=== PATIENT | male | born 1975 | race Caucasian/White ===

== ENCOUNTER → 2016-10-20 | Outpatient (CLI) | payer BC ==
[~2016-10-20] MED LIST: AZITTAB PO; IBUP-103 PO
[2016-10-20 12:35] LABS: BASO % 0.1 %; BASO ABS # 0.01 K/uL (0-0.2); COMPLETE YES; EOS % 0.5 %; HEMATOCRIT 43.9 % (42-52); IG% 0.1 %; LYMPH % 23.5 %; LYMPH ABS # 1.87 K/uL (1.2-3.4); MEAN CELL VOLUME 84.4 fL (80-100); MEAN CORPUSCULAR HGB CONC 34.4 g/dl (32-36); MONO % 5.9 %; NEUT % 69.9 %; PLATELET COUNT 226 K/uL (130-400); WHITE BLOOD COUNT 7.96 K/uL (4.8-10.8)
[2016-10-20 13:08] LABS: CALCIUM 9.5 mg/dl (8.5-10.1)
[2016-10-20 13:14] LABS: ALB/GLOB RATIO 1.3 (0.9-2); ALKALINE PHOSPHATASE 66 U/L (45-117); ALT/SGPT 47 U/L (12-78); AST/SGOT 19 U/L (15-37); BLOOD UREA NITROGEN 14 mg/dl (7-18); BUN/CREATININE RATIO 14.7 (10-20); CARBON DIOXIDE 28 mmol/L (21-32); CHLORIDE 108 mmol/L (98-107); CREATININE 0.93 mg/dl (0.60-1.40); GLUCOSE 80 mg/dl (70-99); POTASSIUM 4.4 mmol/L (3.5-5.1); SODIUM 143 mmol/L (136-145)
== END | disposition home or self-care (01) ==
LOC: C.LABBFT 10:05
PROVIDERS: ATTEND Physician Assistant Medical
DX: R61 Generalized hyperhidrosis (principal)

== ENCOUNTER → 2016-12-15 | Outpatient (CLI) | payer BC ==
[2016-12-15 15:09] LABS: THYROID STIMULATING HORMONE 2.29 uIu/ml (0.300-4.500)
[2016-12-17 14:52] LABS: MICROSOMAL AB <1 IU/ML (<9)
== END | disposition home or self-care (01) ==
LOC: C.LAB1850 13:42
PROVIDERS: ATTEND Internal Medicine Endocrinology, Diabetes & Metabolism
DX: R61 Generalized hyperhidrosis (principal)

== ENCOUNTER 2021-04-26 20:18 | Inpatient (IN) ==
--- NOTE | 2021-04-26 20:46 | Emergency Department Note ---
History of Present Illness General Chief complaint: Abdominal Pain Stated complaint: KIDNEY STONE Time Seen by Provider: 04/26/21 20:34 History of Present Illness Maximum Pain Intensity: 7 This is an otherwise healthy 46-year-old male that presents to the emergency department via private vehicle with complaints of "right upper quadrant abdominal pain". The patient states that Tuesday around noon time he began with severe right upper quadrant abdominal pain. He states that this was shortly after landing in [facility]. He had chills and diaphoresis with this. He presented then to the emergency department there in [facility] and had a work-up. He states that there were gallstones noted. He then had some resolution of his pain and proceeded back home here to the area. He notes persistence of pain since that time. Current pain 12/04. Patient denies any chest pain but does note some minor shortness of breath secondary to the pain. In regard to today's visit the patient denies any pertinent past medical history, surgeries or allergies. Patient did feel nauseous earlier but not at the present time. Home Medications Medication Instructions Recorded Confirmed Type No Known Home Medications 07/25/20 09/16/20 History Allergies Allergy/AdvReac Type Severity Reaction Status Date / Time No Known Allergies Allergy Mild Unverified 09/16/20 13:56 Past Med/Surg History Medical History Counseling for initiation of control method OR scheduled-Vasectomy end of this month Plantar fascial fibromatosis of both feet Pneumonia appx 2016 Surgical History History of repair of ACL 1998 Family History Mother Osteoarthritis Excessive sweating Father Dupuytrens contracture Daughter No problems noted. Son No problems noted. Other No significant family history Social History Smoking Status: Never smoker Hx Alcohol Use: No Preferred Language: Ghanaian Visual Impairment: No Limitations Hearing Ability: Normal Beliefs That Will Affect Care: None marital status: Feels Safe at Home: Yes Review of Systems A total of 10 systems reviewed and were otherwise negative Physical Exam Vital Signs Vital Signs - 24 hr 04/26/21 20:22 04/26/21 21:31 Temperature 36.8 C Temperature Source Temporal Artery Scan Pulse Rate 76 68 Pulse Rhythm Regular Respiratory Rate 20 16 Respiratory Effort / Characteristics Non-Labored Spontaneous Non-Labored Spontaneous Respiratory Depth Normal Normal Respiratory Pattern Regular Regular Blood Pressure 132/78 Blood Pressure [Right Arm] 136/83 Blood Pressure Mean 96 Blood Pressure Mean [Right Arm] 100 Blood Pressure Position Sitting Blood Pressure Position [Right Arm] Semi-fowlers Pulse Oximetry 96 97 Oxygen Delivery Method Room Air Room Air Sepsis Recent Fever Within 48 Hours Yes Sepsis New/Unexplained Change in Mental Status No Sepsis Action Taken by Nursing No Action Required VITAL SIGNS - Vital signs and nursing notes were reviewed. Stable and afebrile. GENERAL - 46-year-old male appearing his stated age who is in no acute distress. Communicates well with provider and answers questions appropriately. HEAD - NC/AT. LUNGS - Chest wall symmetric without accessory muscle use, intercostals retractions, or central cyanosis. Normal vesicular breath sounds CTA B/L. No wheezes, rales, or rhonchi appreciated. CARDIAC - RRR with S1/S2. No murmur, rubs, or gallops appreciated. ABDOMEN - Abdominal contour normal without pulsations or visible masses. BS normoactive all four quadrants. RUQ abd TTP noted. No guarding or rigidity. No palpable masses, hepatosplenomegaly, or ascites noted. EXTREMITIES - No clubbing or peripheral cyanosis. No pretibial edema present. +5/5 strength noted in UE/LE bilaterally. NEUROLOGIC - Cranial nerves II through XII grossly intact. Sensory intact to light touch throughout. PSYCH - A&O, and cooperates fully with examiner. Pt is very pleasant and interacts well with examiner. Course Administered Medications Discontinued Medications Piperacillin Sod/Tazobactam Sod (Zosyn) 4.5 gm in 120 mls @ 240 mls/hr IV NOW ONE Stop: 04/26/21 23:41 Last Admin: 04/26/21 23:32 Dose: 240 mls/hr Documented by: [id number] Medical Decision Making Laboratory Data Result diagrams: 04/26/21 21:14 04/26/21 21:14 Lab Results 04/26/21 04/26/21 04/26/21 Range/Units 21:14 21:14 21:15 WBC 8.68 (4.8-10.8) K/uL RBC 4.82 (4.7-6.1) M/uL Hgb 13.9 L (14.0-18.0) g/dL Hct 41.2 L (42-52) % MCV 85.5 (80-100) fL MCH 28.8 (25-34) pg MCHC 33.7 (32-36) g/dL RDW Std Deviation 38.6 (36.4-46.3) fL RDW Coeff of Lenny 12.3 (11.5-14.5) % Plt Count 172 (130-400) K/uL MPV 10.3 (7.4-10.4) fL Immature Gran % (Auto) 0.1 % Neut % (Auto) 74.0 % Lymph % (Auto) 17.5 % [place] % (Auto) 7.5 % Eos % (Auto) 0.8 % Baso % (Auto) 0.1 % Neut # (Auto) 6.42 (1.4-6.5) K/uL Lymph # (Auto) 1.52 (1.2-3.4) K/uL [place] # (Auto) 0.65 H (0.11-0.59) K/uL Eos # (Auto) 0.07 (0-0.5) K/uL Baso # (Auto) 0.01 (0-0.2) K/uL Immature Gran # (Auto) 0.01 (0.00-0.02) K/uL Sodium 142 (136-145) mmol/L Potassium 3.8 (3.5-5.1) mmol/L Chloride 108 H (98-107) mmol/L Carbon Dioxide 27 (21-32) mmol/L Anion Gap 7.0 (3-11) BUN 12 (7-18) mg/dl Creatinine 1.00 (0.6-1.4) mg/dl Est Cr Clr Drug Dosing 118.0 ml/min Est GFR ( Amer) 104.9 ml/min Est GFR (Non-Af Amer) 90.5 ml/min BUN/Creatinine Ratio 11.6 (10-20) Glucose 102 H (70-99) mg/dl Calcium 9.0 (8.5-10.1) mg/dl Total Bilirubin 1.0 (0.2-1) mg/dl AST 63 H (15-37) U/L ALT 124 H (12-78) U/L Alkaline Phosphatase 66 (45-117) U/L Troponin I < 0.015 (0-0.045) ng/ml Total Protein 6.6 (6.4-8.2) gm/dl Albumin 3.5 (3.4-5.0) gm/dl Globulin 3.1 (2.5-4.0) gm/dl Albumin/Globulin Ratio 1.1 (0.9-2) Lipase 195 (73-393) U/L Urine Color Yellow Urine Appearance Clear (Clear) Urine pH 8.0 H (4.5-7.5) Ur Specific [place] 1.005 (1.000-1.030) Urine Protein Negative (Negative) Urine Glucose (UA) Negative (Negative) Urine Ketones Negative (Negative) Urine Blood Negative (Negative) Urine Nitrite Negative (Negative) Urine Bilirubin Negative (Negative) Urine Urobilinogen Negative (Negative) Ur Leukocyte Esterase Negative (Negative) Imaging Data Radiologist's Impression: US GALLBLADDER: Impression: Multiple gallstones are seen. Gallbladder wall thickness measures 6 mm. Negative ultrasound Teixeira sign. CBD is not dilated. Unremarkable pancreas No focal lesion seen in the liver Radiologist: Tommie Voss MD Study ready at 22:27 and initial results transmitted at 22:47 MDM Narrative Patient was seen and evaluated as above in room B12. Review was performed of nursing notes and vital signs. I did review pertinent previous visits and patient history. After obtaining a thorough history and physical examination the above work up was performed. Patient presents to us today with right upper quadrant abdominal pain. He is nontoxic on examination. Vital signs are stable. He does have some right upper quadrant abdominal tenderness. No guarding or rigidity. Options of care were discussed with the patient. IV access was established. Labs were drawn. No leukocytosis. Mild anemia noted with hemoglobin of 13.9. No emergent metabolic disturbance. Mild elevation of AST and ALT. T bili top normal at 1.0. Troponin negative. Lipase normal. Urinalysis does not suggest infection. EKG was performed and reveals normal sinus rhythm at a rate of [address] elevation. Presentation discussed with the on-call general surgeon, Dr. Lerma. We will keep the patient n.p.o. after midnight. We will add Zosyn. Patient will be admitted to medicine service. He is stable at this time. Patient educated upon plan of care. Patient happy with plan of care. Case discussed with the hospitalist. Please refer to further documentation regarding his stay. GCS: 15 In the evaluation and treatment of this patient, the following differential diagnoses were considered: ASC, AK, Pneumonia, GERD, Cholecystitis, Ascending Cholangitis, Cholydocholithiasis, Bowel Obstruction, PE, Amongst Others. Impression & Plan Abdominal pain, acute, right upper quadrant, Gallstones, Thickening of wall of gallbladder, Elevated LFTs Discharge Plan Visit Data Chief Complaint: Abdominal Pain Stated Complaint: KIDNEY STONE ED Provider: Elyssa Bradley ED Midlevel Provider: Leighton Whitten Discharge Problem: Abdominal pain, acute, right upper quadrant, Gallstones, Thickening of wall of gallbladder, Elevated LFTs Patient Disposition: Admitted As Inpatient Condition: Good Forms Stand Alone Forms: [employer] Prescriptions Prescriptions: No Action No Known Home Medications RF: 0 Referrals Referrals: Yrn Hong MD [Primary Care Provider] -
[2021-04-26 21:36] LABS: Basophils # (auto) 0.01 K/uL (0-0.2); Basophils % (auto) 0.1 %; Eosinophils # (auto) 0.07 K/uL (0-0.5); Eosinophils % (auto) 0.8 %; Hematocrit (blood only) 41.2 % (42-52); Hemoglobin 13.9 g/dL (14.0-18.0); Immature Granulocytes # (auto) 0.01 K/uL (0.00-0.02); Immature Granulocytes % (auto) 0.1 %; Lymphocytes # (auto) 1.52 K/uL (1.2-3.4); Lymphocytes % (auto) 17.5 %; Mean Corpuscular Hemoglobin 28.8 pg (25-34); Mean Corpuscular Hgb Conc 33.7 g/dL (32-36); Mean Corpuscular Volume 85.5 fL (80-100); Mean Platelet Volume 10.3 fL (7.4-10.4); Monocytes # (auto) 0.65 K/uL (0.11-0.59); Monocytes % (auto) 7.5 %; Neutrophils # (auto) 6.42 K/uL (1.4-6.5); Platelet Count 172 K/uL (130-400); RDW Coefficient of Variation 12.3 % (11.5-14.5); RDW Standard Deviation 38.6 fL (36.4-46.3); Red Blood Count 4.82 M/uL (4.7-6.1); White Blood Count 8.68 K/uL (4.8-10.8)
[2021-04-26 21:56] LABS: Alanine Aminotransferase 124 U/L (12-78); Albumin Level 3.5 gm/dl (3.4-5.0); Aspartate Aminotransferase 63 U/L (15-37); BUN Creatinine Ratio 11.6 (10-20); Blood Urea Nitrogen 12 mg/dl (7-18); Carbon Dioxide 27 mmol/L (21-32); Chloride 108 mmol/L (98-107); Est GFR (African American) 104.9 ml/min; Est GFR (Non-African American) 90.5 ml/min; Glucose 102 mg/dl (70-99); Lipase 195 U/L (73-393); Potassium 3.8 mmol/L (3.5-5.1); Sodium 142 mmol/L (136-145)
[2021-04-26 22:00] LABS: Albumin Globulin Ratio 1.1 (0.9-2); Alkaline Phosphatase 66 U/L (45-117); Globulin 3.1 gm/dl (2.5-4.0); Total Protein 6.6 gm/dl (6.4-8.2); Troponin I < 0.015 ng/ml (0-0.045)
[2021-04-26 22:27] LABS: Appearance Urine Clear (Clear); Bilirubin Urine Negative (Negative); Blood Urine Negative (Negative); Color Urine Yellow; Glucose Urine UA Negative (Negative); Ketones Urine Negative (Negative); Leukocyte Esterase Urine Negative (Negative); Nitrite Urine Negative (Negative); Protein Urine Negative (Negative); Specific Gravity Urine 1.005 (1.000-1.030); Urobilinogen Urine Negative (Negative)
[2021-04-26] MEDS ORDERED: PIPERACILL/TAZOBAC CONSULT ACTIVE PRN (23:12)
[2021-04-26] MEDS ORDERED: PIPERACILLIN/TAZOBACTAM 4.5 GM/120 ML BAG IV ONE (23:12)
[2021-04-26] MEDS ORDERED: SODIUM CHLORIDE 0.9% 1000ML 1,000 ML IV SCH (23:15)
[2021-04-26] MEDS ORDERED: KETOROLAC TROMETHAMINE 15 MG/ML VIAL IV ONE (23:52)
--- NOTE | 2021-04-26 23:52 | History & Physical Report ---
Date of Service April 26, 2021 Assessment & Plan (1) Abdominal pain, acute, right upper quadrant: Plan: Right upper quadrant abdominal pain/gallstones/thickened gallbladder wall/elevated LFTs- Studies and examination most consistent with acute cholecystitis Ordering CT scan of abdomen and pelvis for further clarification to assess for possible peritonitis NPO NSS + KCl 20 mEq at 100 mils per hour Famotidine 20 mg IV every 12 hours Zofran 4 mg IV every 6 hours as needed Zosyn 4.5 g IV every 8 hours Toradol 15 mg IV every 6 hours as needed moderate pain Morphine sulfate 4 mg IV every 3 hours as needed severe pain Repeat CBC with differential and chemistry profile in a.m. General surgery consulted by the ED and aware (2) Gallstones: Plan: See above (3) Thickening of wall of gallbladder: Plan: See above (4) Elevated LFTs: Plan: See above History of Present Illness Chief Complaint: The patient presents to the emergency department with complaint of right upper quadrant abdominal pain worsening over the past 24 hours Primary Care Provider: Yrn Hong MD The patient is a 46-year-old male with no significant past medical history, who presents to the emergency department with worsening right upper quadrant abdominal pain for the past 24 hours. He did have some intermittent chills and sweats when he landed his airplane in [facility], where he went to the emergency department and was told that he had gallstones. When his pain resolved, he returned back to [place], and has now had a recurrence of the pain is noted. Upon reflection, he reports that he has had intermittent right flank pain over the past few years, and wonders if he may have had initial problems with his gallbladder at that time. He did have some brief nausea but none at this time. Allergies Allergy/AdvReac Type Severity Reaction Status Date / Time No Known Allergies Allergy Mild Unverified 04/27/21 01:06 Home Medications Medication Instructions Recorded Confirmed Type ascorbic acid (vitamin C) 250 mg 0 mg PO DAILY 04/27/21 04/27/21 History tablet (Vitamin C) omega-3 fatty acids 1,000 mg PO DAILY 04/27/21 04/27/21 History vitamin B complex 1 tab PO DAILY 04/27/21 04/27/21 History Past Med/Surg History Medical History Counseling for initiation of control method OR scheduled-Vasectomy end of this month Plantar fascial fibromatosis of both feet Pneumonia appx 2017 Surgical History History of repair of ACL 1998 Family History Mother Osteoarthritis Excessive sweating Father Dupuytrens contracture Daughter No problems noted. Son No problems noted. Other No significant family history Social History Smoking Status: Never smoker Hx Alcohol Use: No Preferred Language: Sinhala Visual Impairment: No Limitations Hearing Ability: Normal Beliefs That Will Affect Care: None marital status: Feels Safe at Home: Yes Review of Systems Review of Systems: The patient denies chest pain, palpitations, shortness of breath, dyspnea on exertion, cough, lower extremity swelling, sore throat, fevers, chills, sweats, vomiting, diarrhea , constipation, pelvic pain, blood in urine or stool, dysuria, lightheadedness, dizziness, headache, memory loss, loss of consciousness, rash, abnormal bruising or bleeding, imbalance, focal or generalized weakness, numbness or tingling in arms or legs, generalized arthralgias or myalgias, back or neck pain, or night sweats. The review of systems is otherwise negative other than for that already noted above, and at least 10 systems have been reviewed. Physical Exam Physical Exam: The patient is awake, alert and oriented 3, well developed and well nourished, normocephalic and atraumatic, lying in bed and in no acute distress. HEENT--PERRL, EOMI, mucous membranes and oropharynx normal. Neck--supple. No JVD. No bruits. Thyroid normal, trachea midline, no adenopathy. Heart--normal S1 and S2. No murmurs, rubs or gallops. Lungs--clear bilaterally, no respiratory distress, no accessory muscle use. Abdomen--normal bowel sounds and soft. Right upper quadrant tenderness. Nondistended Extremities--no cyanosis or clubbing. No edema. Dermatologic--normal skin turgor, normal color, no abnormal lymph nodes, no rash. Neurologic--cranial nerves II through XII grossly intact. Rheumatologic--normal range of motion. Psychiatric--normal affect. Results & Data Results & Data ([facility]) Vital Signs (Past 12 Hours) Vital Signs Temp Pulse Resp BP BP Pulse Ox 04/26/21 21:31 68 16 136/83 97 04/26/21 20:22 98.2 F 76 20 132/78 96 Laboratory Results Laboratory Results WBC 8.68 K/uL (4.8-10.8) 04/26/21 21:14 RBC 4.82 M/uL (4.7-6.1) 04/26/21 21:14 Hgb 13.9 g/dL (14.0-18.0) L 04/26/21 21:14 Hct 41.2 % (42-52) L 04/26/21 21:14 MCV 85.5 fL (80-100) 04/26/21 21:14 MCH 28.8 pg (25-34) 04/26/21 21:14 MCHC 33.7 g/dL (32-36) 04/26/21 21:14 RDW Std Deviation 38.6 fL (36.4-46.3) 04/26/21 21:14 RDW Coeff of Lenny 12.3 % (11.5-14.5) 04/26/21 21:14 Plt Count 172 K/uL (130-400) 04/26/21 21:14 MPV 10.3 fL (7.4-10.4) 04/26/21 21:14 Immature Gran % (Auto) 0.1 % 04/26/21 21:14 Neut % (Auto) 74.0 % 04/26/21 21:14 Lymph % (Auto) 17.5 % 04/26/21 21:14 [place] % (Auto) 7.5 % 04/26/21 21:14 Eos % (Auto) 0.8 % 04/26/21 21:14 Baso % (Auto) 0.1 % 04/26/21 21:14 Neut # (Auto) 6.42 K/uL (1.4-6.5) 04/26/21 21:14 Lymph # (Auto) 1.52 K/uL (1.2-3.4) 04/26/21 21:14 [place] # (Auto) 0.65 K/uL (0.11-0.59) H 04/26/21 21:14 Eos # (Auto) 0.07 K/uL (0-0.5) 04/26/21 21:14 Baso # (Auto) 0.01 K/uL (0-0.2) 04/26/21 21:14 Immature Gran # (Auto) 0.01 K/uL (0.00-0.02) 04/26/21 21:14 Sodium 142 mmol/L (136-145) 04/26/21 21:14 Potassium 3.8 mmol/L (3.5-5.1) 04/26/21 21:14 Chloride 108 mmol/L (98-107) H 04/26/21 21:14 Carbon Dioxide 27 mmol/L (21-32) 04/26/21 21:14 Anion Gap 7.0 (3-11) 04/26/21 21:14 BUN 12 mg/dl (7-18) 04/26/21 21:14 Creatinine 1.00 mg/dl (0.6-1.4) 04/26/21 21:14 Est Cr Clr Drug Dosing 118.0 ml/min 04/26/21 21:14 Est GFR ( Amer) 104.9 ml/min 04/26/21 21:14 Est GFR (Non-Af Amer) 90.5 ml/min 04/26/21 21:14 BUN/Creatinine Ratio 11.6 (10-20) 04/26/21 21:14 Glucose 102 mg/dl (70-99) H 04/26/21 21:14 Calcium 9.0 mg/dl (8.5-10.1) 04/26/21 21:14 Total Bilirubin 1.0 mg/dl (0.2-1) 04/26/21 21:14 AST 63 U/L (15-37) H 04/26/21 21:14 ALT 124 U/L (12-78) H 04/26/21 21:14 Alkaline Phosphatase 66 U/L (45-117) 04/26/21 21:14 Troponin I < 0.015 ng/ml (0-0.045) 04/26/21 21:14 Total Protein 6.6 gm/dl (6.4-8.2) 04/26/21 21:14 Albumin 3.5 gm/dl (3.4-5.0) 04/26/21 21:14 Globulin 3.1 gm/dl (2.5-4.0) 04/26/21 21:14 Albumin/Globulin Ratio 1.1 (0.9-2) 04/26/21 21:14 Lipase 195 U/L (73-393) 04/26/21 21:14 Urine Color Yellow 04/26/21 21:15 Urine Appearance Clear (Clear) 04/26/21 21:15 Urine pH 8.0 (4.5-7.5) H 04/26/21 21:15 Ur Specific [place] 1.005 (1.000-1.030) 04/26/21 21:15 Urine Protein Negative (Negative) 04/26/21 21:15 Urine Glucose (UA) Negative (Negative) 04/26/21 21:15 Urine Ketones Negative (Negative) 04/26/21 21:15 Urine Blood Negative (Negative) 04/26/21 21:15 Urine Nitrite Negative (Negative) 04/26/21 21:15 Urine Bilirubin Negative (Negative) 04/26/21 21:15 Urine Urobilinogen Negative (Negative) 04/26/21 21:15 Ur Leukocyte Esterase Negative (Negative) 04/26/21 21:15 COVID-19 Eval Order Covid19 at [facility] 04/26/21 23:52 SARS-CoV-2 (PCR) NEGATIVE (Negative) 04/26/21 23:52 Diagnostic Findings [facility] Patient: DERRICK STEPHENS (Male) : 77 Status: ER Date: 04/26/21 22:06 Room #: History: RUQ pain Slices: 46 Priors: Tech: Jalyn Cárdenas @ [phone] Exams: US GALLBLADDER Contrast: Accession Numbers: [id number] Referring Physician: REFERRED SELF Preliminary Findings Only See Final Report For Complete Findings US GALLBLADDER: Impression: Multiple gallstones are seen. Gallbladder wall thickness measures 6 mm. Negative ultrasound Teixeira sign. CBD is not dilated. Unremarkable pancreas No focal lesion seen in the liver Radiologist: Tommie Voss MD Study ready at 22:27 and initial results transmitted at 22:47 *This report constitutes a preliminary interpretation only. Non-acute findings felt to be unrelated to the clinical presentation may not be discussed in this report. The study will be interpreted and a final report will be generated by the local Radiologist the following shift. To reach the [facility] radiology department call [phone]. If a discrepancy is found between the preliminary and final interpretations of this study, please notify us via our Client Portal at [email or web address], under QA Exams. You can also fax this report with a description of the discrepancy, or include the final report, to our daytime fax number [phone]. If faxing, please indicate the severity of discrepancy using one of the following categories: [ ] 1 - Agree/Informational [ ] 2 - Unlikely to Affect Management [ ] 3 - Possible Eventual Change of Management [ ] 4 - Probable Immediate Change of Management For all other patient related information, please fax us at [phone]. [id number] Code Status & VTE Plan Code Status Full code VTE Prophylaxis Plan VTE Prophylaxis will be ordered: Yes PG Care Time/CCT Total # of Minutes Spent Total Time Spent with Patient: Total time spent is greater than 50% in coordination of care (as documented) at patient's floor/unit and/or counseling patient: Coding Level of Care Code 04783 Initial Inpt Care Lvl 2 Diagnoses Abdominal pain, acute, right upper quadrant R10.11 Gallstones K80.20 Thickening of wall of gallbladder K82.8 Elevated LFTs R79.89
[2021-04-27] MEDS: NSS + 20MEQ KCL 20 MEQ/1,000 ML BAG IV SCH ×2 (00:12→13:47)
[2021-04-27] MEDS ORDERED: PIPERACILL/TAZOBAC CONSULT ACTIVE PRN (01:46)
[2021-04-27] MEDS ORDERED: KETOROLAC TROMETHAMINE 15 MG/ML VIAL IV PRN (01:46)
[2021-04-27] MEDS ORDERED: ONDANSETRON INJ 2 MG/ML 2 ML VIAL IV PRN (01:46)
[2021-04-27] MEDS ORDERED: MoRPHine SULFATE 4 MG/ML 1 ML CARP\\VIAL IV PRN (01:46)
[2021-04-27] MEDS: FAMOTIDINE 20 MG in SYRINGE 3 ML IV SCH ×2 (03:23→21:37)
[2021-04-27] MEDS ORDERED: PIPERACILLIN/TAZOBACTAM 3.375 GM in DEXTROSE 5% 100 ML IV SCH (06:00)
[2021-04-27 06:24] LABS: Basophils # (auto) 0.01 K/uL (0-0.2); Basophils % (auto) 0.2 %; Eosinophils % (auto) 1.6 %; Hematocrit (blood only) 38.2 % (42-52); Hemoglobin 13.1 g/dL (14.0-18.0); Lymphocytes # (auto) 1.47 K/uL (1.2-3.4); Lymphocytes % (auto) 22.8 %; Mean Corpuscular Hemoglobin 29.6 pg (25-34); Mean Corpuscular Hgb Conc 34.3 g/dL (32-36); Mean Corpuscular Volume 86.4 fL (80-100); Monocytes # (auto) 0.47 K/uL (0.11-0.59); Monocytes % (auto) 7.3 %; Neutrophils % (auto) 68.1 %; Platelet Count 149 K/uL (130-400); RDW Coefficient of Variation 12.4 % (11.5-14.5); RDW Standard Deviation 39.3 fL (36.4-46.3); Red Blood Count 4.42 M/uL (4.7-6.1); White Blood Count 6.45 K/uL (4.8-10.8)
[2021-04-27 07:08] LABS: Bilirubin,Total 1.7 mg/dl (0.2-1); Calcium 8.3 mg/dl (8.5-10.1); Est GFR (African American) 97.8 ml/min; Est GFR (Non-African American) 84.3 ml/min; Globulin 2.9 gm/dl (2.5-4.0); Potassium 4.2 mmol/L (3.5-5.1); Total Protein 5.9 gm/dl (6.4-8.2)
--- NOTE | 2021-04-27 07:13 | Surgery Consultation ---
Date of Consultation April 27, 2021 Assessment & Plan (1) Gallstones: (2) Thickening of wall of gallbladder: (3) Acute cholecystitis: 46-year-old gentleman with what appears to be acute cholecystitis. I discussed the risks and benefits of laparoscopic cholecystectomy with him. We discussed the postoperative course and limitations. He is agreeable to proceed. All his questions were answered. He has been placed on IV antibiotics and IV fluids. We will continue these for now. We will take him to the operating room at the earliest convenience. History of Present Illness Reason for Consultation: Acute cholecystitis Requesting Physician: Jordan Sanchez MD Attending Physician: Jordan Sanchez MD History of Present Illness 46-year-old gentleman presents with 2-day history of right upper quadrant pain. He gives a history of prior right-sided back pain on and off. He was eating eggs on Tuesday morning when he developed a very sharp stabbing pain in his right side. 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 He was seen in the emergency room and sent home after pain medicine. He returned home but still continued to have pain. It was worsening, so he came to the emergency department. Ultrasound demonstrates stones and probable acute cholecystitis. He denies nausea or vomiting. He does endorse fevers and chills over the last 2 days. He denies changes in bowel habits. He denies other complaints. Allergies Allergy/AdvReac Type Severity Reaction Status Date / Time No Known Allergies Allergy Mild Unverified 04/27/21 01:06 Home Medications Medication Instructions Recorded Confirmed Type ascorbic acid (vitamin C) 250 mg 0 mg PO DAILY 04/27/21 04/27/21 History tablet (Vitamin C) omega-3 fatty acids 1,000 mg PO DAILY 04/27/21 04/27/21 History vitamin B complex 1 tab PO DAILY 04/27/21 04/27/21 History Patient History Medical History Counseling for initiation of control method OR scheduled-Vasectomy end of this month Plantar fascial fibromatosis of both feet Pneumonia appx 2016 Surgical History History of repair of ACL 1998 Family History Mother Osteoarthritis Excessive sweating Father Dupuytrens contracture Daughter No problems noted. Son No problems noted. Other No significant family history Social History Smoking Status: Never smoker Hx Alcohol Use: Yes Hx Substance Use: No Preferred Language: Guinean Communication Ability: Effective Visual Impairment: No Limitations Hearing Ability: Normal Ax Survey Worker Required: No Beliefs That Will Affect Care: None marital status: Current Living Situation: Spouse Feels Safe at Home: Yes Assistive Devices: None Review of Systems Review of Systems: All systems reviewed & are unremarkable except as noted in HPI & below Physical Exam Constitutional: WD/WN, vitals as above Eyes: PERRL, conjunctivae normal, anicteric sclerae Neck: trachea midline, no thyromegaly Respiratory: normal respiratory effort; no respiratory distress and no labored breathing Cardiovascular: Rate/Rhythm: regular rate and regular rhythm Gastrointestinal (Abdomen): Inspection/Auscultation: abdomen normal to inspection; abdomen not distended and no abdominal surgical incision Percussion/Palpation: + abdomen tender (RUQ tenderness), abdomen soft, + hernia and + ascites (Small reducible umbilical); no guarding and abdomen not rigid Musculoskeletal: Extremities: no cyanosis and no clubbing Skin: no rashes, warm and dry Psychiatric: A+Ox3, euthymic affect Results & Data ([facility]) Vital Signs (Past 12 Hours) Vital Signs Temp Pulse Pulse Resp BP BP BP 04/27/21 01:49 36.9 C 68 16 118/75 04/27/21 01:00 16 124/66 04/26/21 23:53 16 126/76 04/26/21 21:31 68 16 136/83 04/26/21 20:22 36.8 C 76 20 132/78 Pulse Ox 04/27/21 01:49 95 04/27/21 01:00 96 04/26/21 23:53 96 04/26/21 21:31 97 04/26/21 20:22 96 Laboratory Results 04/27/21 04/27/21 04/26/21 Range/Units 06:03 06:03 23:52 WBC 6.45 (4.8-10.8) K/uL RBC 4.42 L (4.7-6.1) M/uL Hgb 13.1 L (14.0-18.0) g/dL Hct 38.2 L (42-52) % MCV 86.4 (80-100) fL MCH 29.6 (25-34) pg MCHC 34.3 (32-36) g/dL RDW Std Deviation 39.3 (36.4-46.3) fL RDW Coeff of Lenny 12.4 (11.5-14.5) % Plt Count 149 (130-400) K/uL MPV 10.0 (7.4-10.4) fL Immature Gran % (Auto) 0.0 % Neut % (Auto) 68.1 % Lymph % (Auto) 22.8 % [place] % (Auto) 7.3 % Eos % (Auto) 1.6 % Baso % (Auto) 0.2 % Neut # (Auto) 4.40 (1.4-6.5) K/uL Lymph # (Auto) 1.47 (1.2-3.4) K/uL [place] # (Auto) 0.47 (0.11-0.59) K/uL Eos # (Auto) 0.10 (0-0.5) K/uL Baso # (Auto) 0.01 (0-0.2) K/uL Immature Gran # (Auto) 0.00 (0.00-0.02) K/uL Sodium 140 (136-145) mmol/L Potassium 4.2 (3.5-5.1) mmol/L Chloride 109 H (98-107) mmol/L Carbon Dioxide 30 (21-32) mmol/L Anion Gap 1.0 L (3-11) BUN 11 (7-18) mg/dl Creatinine 1.06 (0.6-1.4) mg/dl Est Cr Clr Drug Dosing 111.0 ml/min Est GFR ( Amer) 97.8 ml/min Est GFR (Non-Af Amer) 84.3 ml/min BUN/Creatinine Ratio 10.0 (10-20) Glucose 102 H (70-99) mg/dl Calcium 8.3 L (8.5-10.1) mg/dl Total Bilirubin 1.7 H D (0.2-1) mg/dl AST 83 H (15-37) U/L ALT 148 H (12-78) U/L Alkaline Phosphatase 62 (45-117) U/L Troponin I (0-0.045) ng/ml Total Protein 5.9 L (6.4-8.2) gm/dl Albumin 3.0 L (3.4-5.0) gm/dl Globulin 2.9 (2.5-4.0) gm/dl Albumin/Globulin Ratio 1.0 (0.9-2) Lipase 148 (73-393) U/L Urine Color Urine Appearance (Clear) Urine pH (4.5-7.5) Ur Specific [place] (1.000-1.030) Urine Protein (Negative) Urine Glucose (UA) (Negative) Urine Ketones (Negative) Urine Blood (Negative) Urine Nitrite (Negative) Urine Bilirubin (Negative) Urine Urobilinogen (Negative) Ur Leukocyte Esterase (Negative) COVID-19 Eval Order SARS-CoV-2 (PCR) NEGATIVE (Negative) 04/26/21 04/26/21 04/26/21 Range/Units 23:52 21:15 21:14 WBC (4.8-10.8) K/uL RBC (4.7-6.1) M/uL Hgb (14.0-18.0) g/dL Hct (42-52) % MCV (80-100) fL MCH (25-34) pg MCHC (32-36) g/dL RDW Std Deviation (36.4-46.3) fL RDW Coeff of Lenny (11.5-14.5) % Plt Count (130-400) K/uL MPV (7.4-10.4) fL Immature Gran % (Auto) % Neut % (Auto) % Lymph % (Auto) % [place] % (Auto) % Eos % (Auto) % Baso % (Auto) % Neut # (Auto) (1.4-6.5) K/uL Lymph # (Auto) (1.2-3.4) K/uL [place] # (Auto) (0.11-0.59) K/uL Eos # (Auto) (0-0.5) K/uL Baso # (Auto) (0-0.2) K/uL Immature Gran # (Auto) (0.00-0.02) K/uL Sodium 142 (136-145) mmol/L Potassium 3.8 (3.5-5.1) mmol/L Chloride 108 H (98-107) mmol/L Carbon Dioxide 27 (21-32) mmol/L Anion Gap 7.0 (3-11) BUN 12 (7-18) mg/dl Creatinine 1.00 (0.6-1.4) mg/dl Est Cr Clr Drug Dosing 118.0 ml/min Est GFR ( Amer) 104.9 ml/min Est GFR (Non-Af Amer) 90.5 ml/min BUN/Creatinine Ratio 11.6 (10-20) Glucose 102 H (70-99) mg/dl Calcium 9.0 (8.5-10.1) mg/dl Total Bilirubin 1.0 (0.2-1) mg/dl AST 63 H (15-37) U/L ALT 124 H (12-78) U/L Alkaline Phosphatase 66 (45-117) U/L Troponin I < 0.015 (0-0.045) ng/ml Total Protein 6.6 (6.4-8.2) gm/dl Albumin 3.5 (3.4-5.0) gm/dl Globulin 3.1 (2.5-4.0) gm/dl Albumin/Globulin Ratio 1.1 (0.9-2) Lipase 195 (73-393) U/L Urine Color Yellow Urine Appearance Clear (Clear) Urine pH 8.0 H (4.5-7.5) Ur Specific [place] 1.005 (1.000-1.030) Urine Protein Negative (Negative) Urine Glucose (UA) Negative (Negative) Urine Ketones Negative (Negative) Urine Blood Negative (Negative) Urine Nitrite Negative (Negative) Urine Bilirubin Negative (Negative) Urine Urobilinogen Negative (Negative) Ur Leukocyte Esterase Negative (Negative) COVID-19 Eval Order Covid19 at [facility] SARS-CoV-2 (PCR) (Negative) 04/26/21 Range/Units 21:14 WBC 8.68 (4.8-10.8) K/uL RBC 4.82 (4.7-6.1) M/uL Hgb 13.9 L (14.0-18.0) g/dL Hct 41.2 L (42-52) % MCV 85.5 (80-100) fL MCH 28.8 (25-34) pg MCHC 33.7 (32-36) g/dL RDW Std Deviation 38.6 (36.4-46.3) fL RDW Coeff of Lenny 12.3 (11.5-14.5) % Plt Count 172 (130-400) K/uL MPV 10.3 (7.4-10.4) fL Immature Gran % (Auto) 0.1 % Neut % (Auto) 74.0 % Lymph % (Auto) 17.5 % Ro[place] % (Auto) 7.5 % Eos % (Auto) 0.8 % Baso % (Auto) 0.1 % Neut # (Auto) 6.42 (1.4-6.5) K/uL Lymph # (Auto) 1.52 (1.2-3.4) K/uL [place] # (Auto) 0.65 H (0.11-0.59) K/uL Eos # (Auto) 0.07 (0-0.5) K/uL Baso # (Auto) 0.01 (0-0.2) K/uL Immature Gran # (Auto) 0.01 (0.00-0.02) K/uL Sodium (136-145) mmol/L Potassium (3.5-5.1) mmol/L Chloride (98-107) mmol/L Carbon Dioxide (21-32) mmol/L Anion Gap (3-11) BUN (7-18) mg/dl Creatinine (0.6-1.4) mg/dl Est Cr Clr Drug Dosing ml/min Est GFR ( Amer) ml/min Est GFR (Non-Af Amer) ml/min BUN/Creatinine Ratio (10-20) Glucose (70-99) mg/dl Calcium (8.5-10.1) mg/dl Total Bilirubin (0.2-1) mg/dl AST (15-37) U/L ALT (12-78) U/L Alkaline Phosphatase (45-117) U/L Troponin I (0-0.045) ng/ml Total Protein (6.4-8.2) gm/dl Albumin (3.4-5.0) gm/dl Globulin (2.5-4.0) gm/dl Albumin/Globulin Ratio (0.9-2) Lipase (73-393) U/L Urine Color Urine Appearance (Clear) Urine pH (4.5-7.5) Ur Specific [place] (1.000-1.030) Urine Protein (Negative) Urine Glucose (UA) (Negative) Urine Ketones (Negative) Urine Blood (Negative) Urine Nitrite (Negative) Urine Bilirubin (Negative) Urine Urobilinogen (Negative) Ur Leukocyte Esterase (Negative) COVID-19 Eval Order SARS-CoV-2 (PCR) (Negative)
[2021-04-27] MEDS ORDERED: LIDOCAINE/EPINEPHRINE 1% 20 ML VIAL ONE (07:16)
--- NOTE | 2021-04-27 07:25 | Anesthesiology Consultation ---
Date of Service April 27, 2021 Assessment & Plan (1) Encounter for pre-operative examination: Chart Review Chart Review: Acceptable Risk for Surgery History Surgery Operation Date: 04/27/21 11:00 Proposed Procedures p Laparoscopic Cholecystectomy - Jean Marie Lerma MD Height/Weight Height: 6 ft 2 in Weight: 99.6 kg Allergies Allergy/AdvReac Type Severity Reaction Status Date / Time No Known Allergies Allergy Mild Unverified 04/27/21 01:06 Medications Home Medications Medication Instructions Recorded Confirmed Last Taken ascorbic acid (vitamin C) 250 mg 0 mg PO DAILY 04/27/21 04/27/21 Unknown tablet (Vitamin C) omega-3 fatty acids 1,000 mg PO DAILY 04/27/21 04/27/21 Unknown vitamin B complex 1 tab PO DAILY 04/27/21 04/27/21 Unknown Active Medications Generic Name Dose Route Start Last Admin Trade Name Freq PRN Reason Stop Dose Admin Potassium Chloride/Sodium Chloride 20 meq in 1,000 mls @ 100 mls/hr 04/26/21 23:30 04/27/21 00:12 Normal Saline W/20 Meq Kcl IV 05/26/21 23:29 100 mls/hr .Q10H LINDSEY Administration Piperacillin Sod/Tazobactam 115 mls @ 28.75 mls/hr 04/27/21 06:00 04/27/21 05:04 Sod 3.375 gm/ Dextrose IV 05/07/21 05:59 28.8 mls/hr Q8H LINDSEY Administration Protocol Famotidine 20 mg/ Syringe 5 mls @ 2.5 mls/min 04/27/21 03:00 04/27/21 03:23 IV 05/27/21 02:59 2.5 mls/min Q12 LINDSEY Administration NPO Date Last Intake of Fluids: 04/26/21 Time Last Intake of Fluids: 23:59 Date Last Intake of Solids: 04/26/21 Time Last Intake of Solids: 23:59 Past Medical History Medical History (Updated 04/27/21 @ 07:25 by Lei Driver MD) Acute cholecystitis Counseling for initiation of control method OR scheduled-Vasectomy end of this month Plantar fascial fibromatosis of both feet Pneumonia appx 2017 Past Family History Family History Mother Osteoarthritis Excessive sweating Father Dupuytrens contracture Daughter No problems noted. Son No problems noted. Other No significant family history Past Surgical History Surgical History History of repair of ACL 1998 Social History Smoking Status: Never smoker Hx Alcohol Use: Yes alcohol intake frequency: holidays/special occasions only Hx Substance Use: No Physical Exam Vital Signs Last Vital Signs Temp 36.9 C 04/27/21 01:49 Pulse 68 04/27/21 01:49 Resp 16 04/27/21 01:49 BP 118/75 04/27/21 01:49 Pulse Ox 95 04/27/21 01:49 Testing Laboratory Results 04/27/21 06:03 04/27/21 06:03 Urine Color Yellow 04/26/21 21:15 Urine Appearance Clear (Clear) 04/26/21 21:15 Urine pH 8.0 (4.5-7.5) H 04/26/21 21:15 Ur Specific [place] 1.005 (1.000-1.030) 04/26/21 21:15 Urine Protein Negative (Negative) 04/26/21 21:15 Urine Glucose (UA) Negative (Negative) 04/26/21 21:15 Urine Ketones Negative (Negative) 04/26/21 21:15 Urine Nitrite Negative (Negative) 04/26/21 21:15 Ur Leukocyte Esterase Negative (Negative) 04/26/21 21:15
--- NOTE | 2021-04-27 07:57 | CT Scan Report ---
ABDOMEN AND PELVIS CT WITHOUT CONTRAST CT DOSE: 1301.27 mGy.cm HISTORY: Acute right lower quadrant abdominal pain cholecystitis TECHNIQUE: Multiaxial CT images of the abdomen and pelvis were performed without contrast. A dose lo wering technique was utilized adhering to the principles of ALARA. COMPARISON STUDY: Right upper quadrant ultrasound 04/26/2021, MRI lumbar spine 07/10/2014, CT abdomen and pelvis 07/10/2008 FINDINGS: The imaged inferior cardiac chambers are unremarkable. Mild subsegmental linear bibasilar c onsolidative opacities are suggestive of atelectasis/scarring. There is no pneumatosis or pneumoperit oneum. The spleen is enlarged measuring 15 cm in length. Unremarkable pancreas, adrenal glands and li alejandro. The gallbladder is distended and demonstrates wall thickening with pericholecystic fluid and tim ma. Numerous gallstones are noted extending into the gallbladder neck on image 120 series 13 and poss ibly the proximal cystic duct. No intrahepatic or extrahepatic biliary ductal dilation. Mildly promin ent pericaval and periportal lymph nodes measure up to 7 mm which are likely reactive. Unremarkable kidneys. No renal or ureteral calculi or hydronephrosis. Prostate is upper limits of nor mal in size. Partial distention of the urinary bladder. There is suggestion of small fat filled ingui nal hernias. Aorta and IVC are unremarkable. No adenopathy. Surgical clips of the upper scrotum. There is no bowel obstruction or bowel wall thickening. Mild colonic diverticulosis with mild to mode rate fecal retention. Normal appendix. Tiny fat filled periumbilical hernia. Unremarkable soft tissue s. No acute fracture. IMPRESSION: 1. Cholelithiasis with findings compatible with acute cholecystitis. 2. No biliary ductal dilation. 3. No bowel obstruction or bowel wall thickening. Normal appendix. 4. Mild splenomegaly. ACT 112: Negative or not required by law. The above report was generated using voice recognition software. It may contain grammatical, syntax o r spelling errors. Electronically signed by: Sam Raymond M.D. 04/27/2021 7:56 AM
[2021-04-27] MEDS ORDERED: fentaNYL citrate 100 MCG/2 ML VIAL ONE ×2 (08:08→09:30)
[2021-04-27] MEDS ORDERED: MIDAZOLAM HCL 1 MG/ML 2ML VIAL ONE (08:08)
[2021-04-27] MEDS ORDERED: ROCURONIUM BROMIDE 10 MG/ML 5 ML VIAL IV ONE ×2 (08:08→09:30)
[2021-04-27] MEDS ORDERED: LIDOCAINE 2% 2 ML VIAL/AMP(20MG/ML) INFIL ONE (08:08)
[2021-04-27] MEDS ORDERED: DEXAMETHASONE SOD INJ 4 MG/ML VIAL ONE (08:08)
[2021-04-27] MEDS ORDERED: ONDANSETRON INJ 2 MG/ML 2 ML VIAL ONE (08:08)
[2021-04-27] MEDS ORDERED: PROPOFOL IV EMULSION 10 MG/ML 20 ML VIAL IV ONE (08:08)
[2021-04-27] MEDS ORDERED: SUGAMMADEX SODIUM 200 MG/2 ML VIAL IV ONE (08:10)
--- NOTE | 2021-04-27 08:26 | Ultrasound Report ---
ABDOMINAL ULTRASOUND, RIGHT UPPER QUADRANT HISTORY: Right upper quadrant abdominal pain.. COMPARISON: None. FINDINGS: Pancreas: The pancreas demonstrates a normal echotexture. Liver: Unremarkable. Gallbladder: The gallbladder wall is thickened and edematous measuring up to 6 mm. There are multiple gallstones identified. There is no sonographic Teixeira's sign. CBD: 4 mm. Right kidney: No hydronephrosis. IMPRESSION: Thickened and edematous gallbladder wall with multiple gallstones. There is negative sonographic Mur phy sign. However, the images remain concerning for acute cholecystitis. Clinical correlation recomme nded. ACT 112: Negative or not required by law. Electronically signed by: Alexy Silva M.D. 04/27/2021 8:24 AM
[2021-04-27] MEDS ORDERED: ePHEDrine sulfate 50 MG/ML SYR ONE (09:17)
--- NOTE | 2021-04-27 09:59 | Post Operative Brief Note ---
Immediate Post Op Note v1 Date of Surgery April 27, 2021 Pre & Post Diagnosis Operation Date: 04/27/21 11:00 Pre-Op Diagnosis: (1) Gallstones (2) Thickening of wall of gallbladder (3) Acute cholecystitis Post-Op Diagnosis: (1) Gallstones (2) Thickening of wall of gallbladder (3) Acute cholecystitis I identified the patient and participated in the time-out.: Yes Procedure Operation Date: 04/27/21 11:00 Actual Procedures p Laparoscopic Cholecystectomy - Jean Marie Lerma MD Surgeon Jean Marie Lerma MD [employer] LISA Rojas assisted with tissue retraction; camera op; closure Estimated Blood Loss 10 Findings Consistent with Post-Op Diagnosis
--- NOTE | 2021-04-27 10:04 | Operative Report ---
Post Operative Report Pre & Post Diagnosis Operation Date: 04/27/21 11:00 Pre-Op Diagnosis: (1) Gallstones (2) Thickening of wall of gallbladder (3) Acute cholecystitis Post-Op Diagnosis: (1) Gallstones (2) Thickening of wall of gallbladder (3) Acute cholecystitis I identified the patient and participated in the time-out.: Yes Procedure Operation Date: 04/27/21 11:00 Actual Procedures p Laparoscopic Cholecystectomy - Jean Marie Lerma MD Surgeon Jean Marie Lerma MD [employer] LISA Rojas assisted with tissue retraction; camera op; closure Estimated Blood Loss 10 Findings Consistent with Post-Op Diagnosis Severe inflammation and distention of the gallbladder with multiple large gallstones Specimens Gallbladder Anesthesia Type General Complications No immediate complications Indications Acute cholecystitis Description of Procedure The patient was taken to the operating room, and placed supine on the operating table. A timeout was performed, perioperative antibiotics were administered, SCD boots were placed. After adequate anesthesia and analgesia was obtained, the abdomen was prepped and draped in the normal sterile fashion. Local anesthetic was injected into and around the proposed incision sites. An incision was made with a 15 blade scalpel in the infra umbilical region and carried down to the level of the fascia. There is a small umbilical hernia identified. It was dissected free and reduced. The fascia was grasped with a trach hook, and a varies needle was used to enter the abdominal cavity. The abdomen was insufflated to a pressure of 15 mmHg, and a 11 mm trocar was placed in this location. A 10 mm, 30 degree laparoscope was placed into the abdominal cavity, and the abdomen was surveyed. The gallbladder was quite distended and inflamed. There were multiple adhesions of the omentum to the gallbladder. Two 5 mm trochars were placed along the right costal margin, and one 5 mm trocar was placed in the subxiphoid region under direct visualization. The gallbladder was grasped and retracted cephalad and laterally, exposing the triangle of Rik ot. Omental adhesions were taken down with blunt dissection as well as judicious use of the L-hook cautery. Dissection began in the triangle with a combination of blunt dissection with the [place] dissector, and judicious use of the hook cautery. The cystic duct and cystic artery were dissected free circumferentially, and a critical view of safety was obtained. The cystic duct and cystic artery were clipped and transected, and the gallbladder was removed from the gallbladder fossa with the hook cautery. There was severe inflammation in this location. The camera was switched to a 5 mm, t he gallbladder was placed in an Endo Catch bag, and removed via the supraumbilical port site. The camera was switched back to the 10 mm camera, and the abdomen was surveyed again. Hemostasis was checked and attended, and was excellent. The abdomen was copiously irrigated and suctioned free. Again hemostasis was checked and was excellent. All trochars were removed under direct visualization. The abdomen was desufflated. The fascia in the 11 mm port site was closed with a 0 Prolene suture. The skin was closed with a running 4-0 Monocryl subcuticular stitch. Dermabond was applied. The patient tolerated the procedure without complication, and was transferred in stable condition to the PACU. All instrument, needle, and sponge counts were correct at the end of the case. My service center assistant was necessary throughout the procedure for tissue retraction, possible camera operation, and closure of the wounds. I understand that section 1842(b)(7)(D) of the Social Security act generally prohibits Medicare physician fee schedule payment for the services of assistants at surgery in teaching hospitals when qualified residents are available to furnish such services. I certify that the services for which payment is claimed were medically necessary and that no qualified resident was available to perform the services. I further understand that these services are subject to postpayment review by the Medicare carrier. I attest to the content of the Intraoperative Record and any orders documented therein. Any exceptions are noted below.
--- NOTE | 2021-04-27 10:25 | Hospitalist Progress Note ---
Date of Service April 27, 2021 Assessment & Plan (1) Abdominal pain, acute, right upper quadrant: Plan: Right upper quadrant abdominal pain/gallstones/thickened gallbladder wall/elevated LFTs- Studies and examination most consistent with acute cholecystitis CT scan of abdomen and pelvis Cholelithiasis with concern for acute cholecystitis, no ductal dilation Patient status post cholecystectomy still with out having flatus or bowel movement. Famotidine 20 mg IV every 12 hours Zofran 4 mg IV every 6 hours as needed Zosyn 4.5 g IV every 8 hours Toradol 15 mg IV every 6 hours as needed moderate pain Morphine sulfate 4 mg IV every 3 hours as needed severe pain (2) Gallstones: Plan: See above (3) Thickening of wall of gallbladder: Plan: See above (4) Elevated LFTs: Plan: Watch for postoperative irritation Admission and Anticipated Discharge Date Admission Date: April 26, 2021 Subjective Pt was seen post operatively good pain control, no flatus urinating ok too, mild nausea Review of Systems Review of Systems: Mild distress and fatigue no headache, no visual changes no speech or swallowing issues no chest pain, pressure or palpitations no shortness of breath, cough or wheezes Mild abdominal pain, mild nausea without vomiting, no flatus or bowel movement no dysuria, hematuria or frequency no focal joint pain or swelling no back pain, CVA tenderness or radicular pain no bruising, bleeding or rashes no focal signs of weakness or numbness or altered sensation no complaints of anxiety or depression.. Physical Exam Physical Exam: The patient appeared well nourished and normally developed. Vital signs as documented. Head exam is normocephalic atraumatic Neck is without JVD, thyromegaly, or carotid bruits. Lungs are clear to auscultation, no focal loss of breath sounds Cardiac exam, Rhythm is regular.. No murmurs, rubs or gallops. Abdominal exam reveals hypoactive bowel sounds, soft laparoscopic ports are visible with Dermabond in place Extremities are nonedematous and both pedal pulses are present Neurologic exam is alert and oriented, no focal loss of strength or sensation Skin is without bruises or rashes Psychologically is without concerns for anxiety or depression Results & Data Results & Data ([facility]) Vital Signs (Past 12 Hours) Vital Signs Temp Pulse Pulse Resp BP BP Pulse Ox 04/27/21 10:13 97.7 F 77 13 122/69 97 04/27/21 07:46 98.1 F 66 16 136/81 97 04/27/21 07:35 81 16 129/83 98 04/27/21 01:49 98.4 F 68 16 118/75 95 04/27/21 01:00 16 124/66 96 04/26/21 23:53 16 126/76 96 PG Care Time/CCT Total # of Minutes Spent Total Time Spent with Patient: Total time spent is greater than 50% in coordination of care (as documented) at patient's floor/unit and/or counseling patient: Coding Level of Care Code 08188 Subseq Hosp Care Lvl 2 Diagnoses Abdominal pain, acute, right upper quadrant R10.11 Gallstones K80.20 Thickening of wall of gallbladder K82.8 Elevated LFTs R79.89
--- NOTE | 2021-04-27 11:01 | Anesthesiology Progress Note ---
Date of Service April 27, 2021 Anesthesia Post Procedure Vital Signs Vital Signs: Temp Pulse Pulse Pulse Resp BP BP 04/27/21 10:45 36.8 C 72 16 132/67 04/27/21 10:30 36.3 C L 80 18 130/67 04/27/21 10:20 68 19 126/64 04/27/21 10:13 36.5 C 77 13 122/69 04/27/21 07:46 36.7 C 66 16 136/81 04/27/21 07:35 81 16 129/83 04/27/21 01:49 36.9 C 68 16 118/75 04/27/21 01:00 16 04/26/21 23:53 16 04/26/21 21:31 68 16 04/26/21 20:22 36.8 C 76 20 132/78 BP Pulse Ox 04/27/21 10:45 94 04/27/21 10:30 94 04/27/21 10:20 96 04/27/21 10:13 97 04/27/21 07:46 97 04/27/21 07:35 98 04/27/21 01:49 95 04/27/21 01:00 124/66 96 04/26/21 23:53 126/76 96 04/26/21 21:31 136/83 97 04/26/21 20:22 96 Transfer of Care Handoff Completed per policy Notes Mental Status: alert / awake / arousable Patient Amnestic to Procedure: Yes Nausea / Vomiting: adequately controlled Pain: adequately controlled Airway Patency, RR, SpO2: stable & adequate BP & HR: stable & adequate Hydration State: stable & adequate Anesthetic Complications: no major complications apparent
--- NOTE | 2021-04-27 11:09 | Electrocardiogram Report ---
Test Reason : Blood Pressure : / mmHG Vent. Rate : 071 BPM Atrial Rate : 071 BPM P-R Int : 186 ms QRS Dur : 088 ms QT Int : 376 ms P-R-T Axes : 063 -39 021 degrees QTc Int : 408 ms Normal sinus rhythm Left axis deviation possible Inferior infarct , age undetermined Abnormal ECG No previous ECGs available Confirmed by Yrn Tanner ([id number]) on 04/27/2021 11:08:34 AM Referred By: REFERRED SELF Confirmed By:Deon Tanner
[2021-04-27] MEDS ORDERED: FLUARIX QUADRIVALENT 0.5 ML SYR IM ONE (11:35)
[2021-04-27] MEDS ORDERED: ACETAMINOPHEN 325 MG TAB PO PRN (16:17)
[2021-04-27] MEDS ORDERED: IBUPROFEN 600 MG TAB PO PRN (16:17)
[2021-04-27] MEDS: oxyCODONE/ACETAMINOPHEN 5mg/325mg TAB PO PRN (19:05)
[2021-04-27 23:51] VITALS: O2SAT 94
[2021-04-28] MEDS: oxyCODONE/ACETAMINOPHEN 5mg/325mg TAB PO PRN (05:53)
[2021-04-28 07:28] VITALS: BP 121/74; PULSE 69; TEMP 98.2
[2021-04-28 07:35] LABS: Eosinophils # (auto) 0.06 K/uL (0-0.5); Eosinophils % (auto) 0.7 %; Hematocrit (blood only) 37.6 % (42-52); Hemoglobin 13.5 g/dL (14.0-18.0); Immature Granulocytes # (auto) 0.02 K/uL (0.00-0.02); Immature Granulocytes % (auto) 0.2 %; Lymphocytes # (auto) 1.86 K/uL (1.2-3.4); Mean Corpuscular Hemoglobin 30.3 pg (25-34); Mean Corpuscular Hgb Conc 35.9 g/dL (32-36); Mean Corpuscular Volume 84.3 fL (80-100); Mean Platelet Volume 9.6 fL (7.4-10.4); Monocytes # (auto) 0.74 K/uL (0.11-0.59); Monocytes % (auto) 8.3 %; Neutrophils # (auto) 6.19 K/uL (1.4-6.5); Neutrophils % (auto) 69.8 %; Platelet Count 185 K/uL (130-400); RDW Coefficient of Variation 12.5 % (11.5-14.5); RDW Standard Deviation 38.5 fL (36.4-46.3); Red Blood Count 4.46 M/uL (4.7-6.1); White Blood Count 8.87 K/uL (4.8-10.8)
[2021-04-28] MEDS: FAMOTIDINE 20 MG in SYRINGE 3 ML IV SCH (08:10)
[2021-04-28 08:25] LABS: Albumin Level 3.2 gm/dl (3.4-5.0); BUN Creatinine Ratio 9.8 (10-20); Calcium 9.6 mg/dl (8.5-10.1); Est GFR (African American) 107.5 ml/min; Est GFR (Non-African American) 92.7 ml/min; Potassium 3.7 mmol/L (3.5-5.1)
[2021-04-28 08:28] LABS: Albumin Globulin Ratio 0.9 (0.9-2); Globulin 3.5 gm/dl (2.5-4.0); Total Protein 6.7 gm/dl (6.4-8.2)
[2021-04-28 08:32] LABS: Bilirubin,Total 1.3 mg/dl (0.2-1)
--- NOTE | 2021-04-28 11:16 | Surgery Progress Note ---
Date of Service April 28, 2021 Assessment & Plan (1) Gallstones: (2) Acute cholecystitis: Plan: POD # 1 s/p laparoscopic cholecystectomy -avss - postop pain mild and controlled - T. bili 1.3 (1.7 preop) - Improvement of LFTS, ALT slightly elevated, alk phos normal Plan: Doing well from surgical standpoint for discharge discharge instructions reviewed and provided follow-up surgery office in [address] Trujillo was present during my examination and agrees with above. Admission and Anticipated Discharge Date Admission Date: April 26, 2021 Subjective feeling good, ready to go home pain controlled with Percocet and Aleve no nausea passing gas urinating and ambulating Physical Exam Constitutional: WD/WN, vitals as above Respiratory: normal respiratory effort; no respiratory distress and no labored breathing Gastrointestinal (Abdomen): Inspection/Auscultation: abdomen normal to inspection and + abdominal surgical incision (laparoscopy incisions with glue clean/dry/intact) Percussion/Palpation: + abdomen tender (at incision sites) and abdomen soft; no guarding and abdomen not rigid Skin: no rashes, warm and dry Psychiatric: A+Ox3, euthymic affect Results & Data ([facility]) Vital Signs (Past 12 Hours) Vital Signs Temp Pulse Pulse Resp BP Pulse Ox 04/28/21 11:09 36.8 C 70 69 18 121/74 94 04/28/21 07:27 36.8 C 69 18 121/74 94 04/28/21 04:20 37.1 C 65 18 125/72 94 04/27/21 23:50 37.1 C 67 18 121/63 94 Laboratory Results 04/28/21 04/28/21 Range/Units 07:20 07:20 WBC 8.87 (4.8-10.8) K/uL RBC 4.46 L (4.7-6.1) M/uL Hgb 13.5 L (14.0-18.0) g/dL Hct 37.6 L (42-52) % MCV 84.3 (80-100) fL MCH 30.3 (25-34) pg MCHC 35.9 (32-36) g/dL RDW Std Deviation 38.5 (36.4-46.3) fL RDW Coeff of Lenny 12.5 (11.5-14.5) % Plt Count 185 (130-400) K/uL MPV 9.6 (7.4-10.4) fL Immature Gran % (Auto) 0.2 % Neut % (Auto) 69.8 % Lymph % (Auto) 21.0 % [place] % (Auto) 8.3 % Eos % (Auto) 0.7 % Baso % (Auto) 0.0 % Neut # (Auto) 6.19 (1.4-6.5) K/uL Lymph # (Auto) 1.86 (1.2-3.4) K/uL [place] # (Auto) 0.74 H (0.11-0.59) K/uL Eos # (Auto) 0.06 (0-0.5) K/uL Baso # (Auto) 0.00 (0-0.2) K/uL Immature Gran # (Auto) 0.02 (0.00-0.02) K/uL Sodium 139 (136-145) mmol/L Potassium 3.7 (3.5-5.1) mmol/L Chloride 108 H (98-107) mmol/L Carbon Dioxide 24 (21-32) mmol/L Anion Gap 8.0 (3-11) BUN 10 (7-18) mg/dl Creatinine 0.98 (0.6-1.4) mg/dl Est Cr Clr Drug Dosing 120.0 ml/min Est GFR ( Amer) 107.5 ml/min Est GFR (Non-Af Amer) 92.7 ml/min BUN/Creatinine Ratio 9.8 L (10-20) Glucose 106 H (70-99) mg/dl Calcium 9.6 D (8.5-10.1) mg/dl Total Bilirubin 1.3 H (0.2-1) mg/dl AST 59 H (15-37) U/L ALT 175 H (12-78) U/L Alkaline Phosphatase 64 (45-117) U/L Total Protein 6.7 (6.4-8.2) gm/dl Albumin 3.2 L (3.4-5.0) gm/dl Globulin 3.5 (2.5-4.0) gm/dl Albumin/Globulin Ratio 0.9 (0.9-2)
--- NOTE | 2021-04-28 19:49 | Discharge Summary ---
Date of Service April 28, 2021 Admission HPI Per Admitting Provider The patient is a 46-year-old male with no significant past medical history, who presents to the emergency department with worsening right upper quadrant abdominal pain for the past 24 hours. He did have some intermittent chills and sweats when he landed his airplane in [facility], where he went to the emergency department and was told that he had gallstones. When his pain resolved, he returned back to [place], and has now had a recurrence of the pain is noted. Upon reflection, he reports that he has had intermittent right flank pain over the past few years, and wonders if he may have had initial pr oblems with his gallbladder at that time. He did have some brief nausea but none at this time. Principal Diagnosis Acute cholecystitis status post cholecystectomy Discharge Exam The patient appeared well Vital signs as documented. Lungs are clear to auscultation and appear unlabored Cardiac exam, Rhythm is regular.. No murmurs, rubs or gallops. Abdominal exam reveals normal bowel sounds, soft non tender, laparoscopic holes look to be intact with Dermabond in place Extremities are nonedematous and both pedal pulses are normal. Neurologic exam is alert and oriented, no focal loss of strength or sensation Skin is without bruises or rashes Psychologically is without concerns for anxiety or depression. Discharge Data Allergies Allergy/AdvReac Type Severity Reaction Status Date / Time No Known Allergies Allergy Mild Unverified 04/27/21 01:06 Consultations 04/26/21 23:19 ED Decision to Admit Stat 04/27/21 04:09 Consult General Surgery Routine Procedures Performed Operation Date: 04/27/21 11:00 Actual Procedures p Laparoscopic Cholecystectomy - Jean Marie Lerma MD Ordered Studies 04/26/21 20:45 US gallbladder Urgent 04/26/21 23:54 CT abd pelvis wo con Urgent Hospital Course (1) Abdominal pain, acute, right upper quadrant: Right upper quadrant abdominal pain/gallstones/thickened gallbladder wall /elevated LFTs- Studies and examination most consistent with acute cholecystitis CT scan of abdomen and pelvis Cholelithiasis with concern for acute cholecystitis, no ductal dilation Patient status post cholecystectomy given some as needed pain medications will encourage bowel movement once home (2) Gallstones: See above (3) Thickening of wall of gallbladder: See above (4) Elevated LFTs: Postoperatively continue to decline Total Time Total Time Spent Total Time Spent (In Minutes): It required less than 30 minutes to prepare this patient for discharge Discharge Plan Discharge Items Patient Disposition: Home - Self-Care Reason For Visit: CHOLECYSTITIS Discharge Diagnosis: cholecystitis, s/p cholecystectomy Umbilical hernia repair Condition on Discharge: Good Activity: Per Instructions section Activity Comment: slowly increase activity Non-emergency contact: Primary Care Provider and Surgeon Call non-emergency contact if: your symptoms worsen and you have a fever Follow-up/Referrals: Yrn Hong MD [Primary Care Provider] - 05/06/21 10:30 am (Appointment will be with Madalyn Tapia) Jean Marie Lerma MD [Physician] - 05/08/21 10:30 am Diet: Low Fat Addtl Attending Provider Instructions: Post-Surgical ~Discharge Instructions Activity Recommendations: - lifting limitation: (10 pounds for 4 weeks), - exercise/sex/sports limit: (nonstrenuous for 2 weeks), - driving or machine use limit: (none for 1 week or until pain free and no longer taking narcotic pain medication.), - Shower/bathe limit: (may shower beginning today) Diet: - Resume previous diet SPECIAL CARE INSTRUCTIONS: - May shower today. Let water run over area and pat dry. Try to keep dressing over the belly button dry for 2 more days and then remove. - Surgical glue on incisions will fall off on its own. - Call the surgeon's office with any questions or concerns - - (ex. temperature higher than 101 degrees F, excessive bleeding or pain). MEDICATIONS: - Resume previous medications unless instructed otherwise by your surgeon. - Ibuprofen 600 mg every 6 hours as needed with food - Percocet 1 every 4 hours, as needed for pain - May want to take OTC stool softener (Colace) daily while taking narcotic pain medication to prevent constipation or straining. FOLLOW UP VISIT: - If not already scheduled, please call the office to schedule a two week follow-up appointment. Office number Pending Studies at Discharge: No Stand-Alone Forms: [employer], Opioid Pain Management, Smoking Cessation Medications and DC Order Prescriptions: New oxycodone-acetaminophen [Percocet] 5-325 mg Tablet 1 tab PO Q4H PRN (Reason: pain) Qty: 10 RF: 0 Continued ascorbic acid (vitamin C) [Vitamin C] 250 mg Tablet 0 mg PO DAILY RF: 0 vitamin B complex Tablet 1 tab PO DAILY RF: 0 Discontinued Fish Oil Capsule 1,000 mg PO DAILY RF: 0 Discharge Orders: Discharge Order (Routine); Ordered 04/28/21 Ordered By: Rush Menchaca/Other Patient Handouts: Cholecystectomy Admission Data Admit Date/Time: 04/26/21 23:51 Attending Provider: Rush Gray Admit Provider: Jordan Sanchez Primary Care Provider: Yrn Hong Other Providers: Jean Marie Lerma ; Jordan Sanchez Other Interventions: Discharge Summary Assessment (RN) Last Done: 04/28/21 11:59 Coding Level of Care Code D/C DAY MANAGEMENT <30 MINS Diagnoses Abdominal pain, acute, right upper quadrant R10.11 Gallstones K80.20 Thickening of wall of gallbladder K82.8 Elevated LFTs R79.89
== END 2021-04-28 12:25 | disposition home or self-care (01) | DRG 419 ==
LOC: ED 20:18 → 3E 23:51 → SUATTDRO 23:51 → 3E 04-27 01:27